=== PATIENT | male | born 1960 | race American Indian/Alaskan Native ===

== ENCOUNTER 2017-12-22 15:56 | Emergency (ER) | payer MEDICARE ==
[2017-12-22 15:56] VITALS: BMI 24.8
[2017-12-22 16:26] VITALS: BP 132/69; RESP 16; TEMP 98.9; O2SAT 100
[2017-12-22] MEDS ORDERED: Sodium Chloride 0.9% 1,000 ML IV STA (17:29)
--- NOTE | 2017-12-22 17:34 | ED PDOC ---
HPI: General Adult Time Seen by Provider: 12/22/17 17:17 Chief Complaint (Nursing): Flu-like Symptoms Chief Complaint (Provider): Fever History Per: Patient Additional Complaint(s): 57 yo male, PMH of HIV, COPD, presents to ED for evaluation of bodyaches, chills , tactile fever, sore throat x 3 days. Patient also reports diarrhea and generalized weakness. Pt reports being compliant on his medications; however, he does not recall his last CD4 or Viral load. Past Medical History Reviewed: Nursing Documentation, Vital Signs Vital Signs: Last Vital Signs Temp 98.9 F 12/22/17 16:23 Pulse 111 H 12/22/17 16:23 Resp 16 12/22/17 16:23 BP 132/69 12/22/17 16:23 Pulse Ox 100 12/22/17 17:34 - Medical History PMH: COPD, HIV, Pneumonia (pneumocystis jirovecii 1991) Denies: Chronic Kidney Disease - Surgical History Surgical History: Tonsillectomy - Family History Family History: States: Unknown Family Hx - Home Medications Home Medications: Ambulatory Orders Medication Instructions Recorded Elviteg/Olga/Emtric/Tenofo Dis 1 each PO DAILY 12/22/17 [Stribild Tablet] Gabapentin [Neurontin] 1 tab PO DAILY 12/22/17 Rilpivirine HCl [Edurant] 1 tab PO DAILY 12/22/17 valACYclovir [Valtrex] 1 gm PO DAILY 12/22/17 - Allergies Allergies/Adverse Reactions: Allergies Allergy/AdvReac Type Severity Reaction Status Date / Time dapsone Allergy Intermediate RASH Verified 12/22/17 16:23 Sulfa (Sulfonamide Allergy Intermediate RASH Verified 12/22/17 16:23 Antibiotics) sulfamethoxazole Allergy Intermediate RASH Verified 12/22/17 16:23 [From Bactrim] trimethoprim [From Bactrim] Allergy Intermediate RASH Verified 12/22/17 16:23 Review of Systems ROS Statement: Except As Marked, All Systems Reviewed And Found Negative Constitutional: Positive for: Fever ENT: Positive for: Nose Congestion Respiratory: Positive for: Cough Physical Exam - Reviewed Nursing Documentation Reviewed: Yes Vital Signs Reviewed: Yes - Physical Exam Appears: Positive for: Well, Non-toxic, No Acute Distress Head Exam: Positive for: ATRAUMATIC, NORMAL INSPECTION, NORMOCEPHALIC Skin: Positive for: Normal Color, Warm, DRY Eye Exam: Positive for: EOMI, Normal appearance, PERRL ENT: Positive for: Normal ENT Inspection Neck: Positive for: Normal, Painless ROM Cardiovascular/Chest: Positive for: Regular Rate, Rhythm Respiratory: Positive for: CNT, Normal Breath Sounds Gastrointestinal/Abdominal: Positive for: Normal Exam, Bowel Sounds, Soft Back: Positive for: Normal Inspection Extremity: Positive for: Normal ROM Neurologic/Psych: Positive for: Alert, Oriented - Laboratory Results Result Diagrams: 12/22/17 18:13 12/22/17 18:13 - ECG O2 Sat by Pulse Oximetry: 100 Medical Decision Making Medical Decision Making: IV access established and treatment initiated with IVF. Pt aferbile, antipyretics withheld. WBC 7.6 CXR: NAd, as read by CARTER CONTRERAS and Lactate WNL Labs resulted and reviewed with pt who demonstrated full understanding. Pt admits to slight burning on urination when asked. Pt declined STD testing, reports his passed last month and denies any recent sexual intercourse. IV Rocpehin administered. Case endorsed to Carter Bates while antibiotics running. Stable for discharge after antibiotics complete Disposition - Clinical Impression Clinical Impression: Influenza-like symptoms, UTI (urinary tract infection) - Patient ED Disposition Is Patient to be Admitted: No - Disposition Disposition: Routine/Home Disposition Time: 19:53 Condition: STABLE Forms: [facility] (Cuban) - POA Present On Arrival: None
--- NOTE | 2017-12-22 17:50 | RAD ---
HISTORY: fever and cough COMPARISON: Comparison made with prior study dated 04/18/2016 TECHNIQUE: Chest PA and lateral FINDINGS: LUNGS: Lung bond are slightly overinflated. The interstitial markings are slightly increased and coarsened with a few scattered peribronchial cuffing changes. Rule out sequela of reactive/inflammatory airway disease or viral illness. Rule out emphysema. No focal consolidation. . PLEURA: No significant pleural effusion identified. No pneumothorax apparent. CARDIOVASCULAR: Normal. OSSEOUS STRUCTURES: Probable old healed fracture deformity left posterolateral 10th rib VISUALIZED UPPER ABDOMEN: Normal. OTHER FINDINGS: None. IMPRESSION: The interstitial markings are slightly increased and coarsened with a few scattered peribronchial cuffing changes. Rule out sequela of reactive/inflammatory airway disease or viral illness. No focal consolidation.
[2017-12-22 18:25] LABS: BASO % 0.5 % (0.0-2.0); EOS # 0.1 K/uL (0.0-0.7); EOS % 0.9 % (0.0-4.0); LYMPH # 1.1 K/uL (1.0-4.3); LYMPH % 14.1 % (20.0-40.0); MEAN CELL VOLUME 99.7 fl (80.0-94.0); MEAN CORPUSCULAR HGB CONC 33.1 g/dL (33.0-37.0); MEAN PLATELET VOLUME 9.3 fl (7.2-11.7); MONO # 1.2 K/uL (0.0-0.8); NEUT # 5.2 K/uL (1.8-7.0); NEUT % 68.5 % (50.0-75.0); NRBC % 0.2 % (0.0-0.0); RBC 3.92 Mil/uL (4.40-5.90); RED CELL DISTRIBUTION WIDTH 14.2 % (11.5-14.5)
[2017-12-22 18:30] LABS: WHITE BLOOD COUNT 7.6 K/uL (4.8-10.8)
[2017-12-22 18:31] LABS: VENOUS BLOOD GAS BASE EXCESS 4.1 mmol/L (0.0-2.0); VENOUS BLOOD GAS PCO2 41 mmHg (40-60); VENOUS BLOOD GAS PO2 49 mm/Hg (30-55); VENOUS BLOOD PH 7.45 (7.32-7.43)
[2017-12-22 18:31] LABS: ALB/GLOB RATIO 1.2 (1.0-2.1); ALBUMIN 3.9 g/dL (3.5-5.0); ALT/SGPT 49 U/L (21-72); AST/SGOT 46 U/L (17-59); BLOOD UREA NITROGEN 9 mg/dl (9-20); CALCIUM 8.8 mg/dL (8.4-10.2); GFR AFRICAN-AMERICAN > 60; GFR NON-AFRICAN AMERICAN > 60
[2017-12-22 18:34] LABS: SQUAMOUS EPITHIAL 8 /hpf (0-5); URINE BILIRUBIN NEGATIVE (NEGATIVE); URINE BLOOD SMALL (NEGATIVE); URINE CLARITY CLOUDY (Clear); URINE COLOR YELLOW (YELLOW); URINE GLUCOSE (UA) NEG (Normal); URINE LEUKOCYTE ESTERASE LARGE Leu/uL (Negative); URINE NITRATE NEGATIVE (NEGATIVE); URINE PROTEIN 100 mg/dL (NEGATIVE)
[2017-12-22 18:36] LABS: URINE BACTERIA OCC (<OCC)
[2017-12-22] MEDS ORDERED: cefTRIAXone (Rocephin) 1 gm Inj ONE (20:02)
[2017-12-22 20:30] VITALS: PULSE 88
--- NOTE | 2017-12-23 10:47 | CARD ---
APPROVED REPORT EKG Measurement Heart [id number] <Conclusion> Sinus tachycardia Otherwise normal ECG
== END 2017-12-22 20:44 | disposition home or self-care (01) ==
LOC: H.ER 15:56
DX: N39.0 Urinary tract infection, site not specified (principal)
CPT/HCPCS: 71046; 80053; 81003; 82803; 84484; 85025; 87040; 87086; 93005; 96374; 99285; J0696; J1885; J2405; J7040

== ENCOUNTER 2018-07-08 21:19 | Emergency (ER) | payer MEDICARE ==
[2018-07-08 21:20] VITALS: BMI 24.8
[2018-07-08 21:28] VITALS: TEMP 98.1
[2018-07-08] MEDS ORDERED: Albuterol-Ipratrop 3 mg / 0.5 (3 ml) UD INH STA (21:36)
--- NOTE | 2018-07-08 21:50 | ED PDOC ---
HPI: SOB/CHF/COPD Time Seen by Provider: 07/08/18 21:29 Chief Complaint (Nursing): Shortness Of Breath Chief Complaint (Provider): asthma exacerabation History Per: Patient History/Exam Limitations: no limitations Onset/Duration Of Symptoms: Days (x4) Current Symptoms Are (Timing): Still Present Additional Complaint(s): 57 year old male with a history of asthma, HIV with an undetectable load presents to the ED for asthma exacerbation onset 4 days associated productive cough with clear sputum, shortness of breath, and chest tightness. Patient reports he used up all of his albuterol over the past 2 days. He denies hemoptysis, chest pain, fever, leg swelling or any other medical complaints. Patient has had similar previous episodes of severe asthma attacks that he has been to the ED for. He admits he continues to smoke cigarettes and marijuana. PMD: Amanda Against Medical Advice - AMA Patient Left Against Medical Advice: The patient declines admission to the hospital and wishes to leave the Emergency Department. This action is against my medical advice. This decision was made with informed refusal. The patient was told that admission to the hospital is necessary. Explanation of the reasons why were discussed. The risks of leaving were explained to the patient and include, but are not limited to, worsening of known or currently unknown conditions, permanent disability and from undiagnosed or untreated conditions. The patient has the capacity to make this informed decision and understands my explanation of the current medical problem and risks of leaving. The patient voluntarily accepts these risks and signed an AMA form documenting our conversation. The patient was given the opportunity to ask questions and reconsider. The patient was encouraged to return to the Emergency Department at any time for further care. Past Medical History Reviewed: Historical Data, Nursing Documentation, Vital Signs Vital Signs: Last Vital Signs Temp 98.1 F 07/08/18 21:26 Pulse 88 07/09/18 00:04 Resp 18 07/09/18 00:04 BP 137/82 07/09/18 00:04 Pulse Ox 98 07/09/18 00:04 - Medical History PMH: Asthma, COPD, HIV, Pneumonia (pneumocystis jirovecii 1991) Denies: Chronic Kidney Disease - Surgical History Surgical History: Tonsillectomy - Family History Family History: States: Other Other Family History: Asthma - Social History Current smoker - smoking cessation education provided: Yes Ex-Smoker (has not smoked in the last 12 months): No Alcohol: Social Drugs: Cannabis - Home Medications Home Medications: Ambulatory Orders Medication Instructions Recorded Doxycycline Hyclate 100 mg PO BID 7 Days cap 12/22/17 Elviteg/Olga/Emtric/Tenofo Dis 1 each PO DAILY 12/22/17 [Stribild Tablet] Gabapentin [Neurontin] 1 tab PO DAILY 12/22/17 Oseltamivir [Tamiflu] 75 mg PO BID 5 Days cap 12/22/17 Rilpivirine HCl [Edurant] 1 tab PO DAILY 12/22/17 valACYclovir [Valtrex] 1 gm PO DAILY 12/22/17 - Allergies Allergies/Adverse Reactions: Allergies Allergy/AdvReac Type Severity Reaction Status Date / Time dapsone Allergy Intermediate RASH Verified 12/22/17 16:23 Sulfa (Sulfonamide Allergy Intermediate RASH Verified 12/22/17 16:23 Antibiotics) sulfamethoxazole Allergy Intermediate RASH Verified 12/22/17 16:23 [From Bactrim] trimethoprim [From Bactrim] Allergy Intermediate RASH Verified 12/22/17 16:23 Review of Systems ROS Statement: Except As Marked, All Systems Reviewed And Found Negative Constitutional: Negative for: Fever Respiratory: Positive for: Cough (productive with clear sputum). Negative for: Hemoptysis Musculoskeletal: Positive for: Other (no leg swelling) Physical Exam - Reviewed Nursing Documentation Reviewed: Yes Vital Signs Reviewed: Yes - Physical Exam Appears: Positive for: Non-toxic, In Acute Distress Head Exam: Positive for: ATRAUMATIC, NORMOCEPHALIC Skin: Positive for: Warm, Dry Eye Exam: Positive for: EOMI, PERRL ENT: Negative for: Pharyngeal Erythema, Tonsillar Exudate Neck: Positive for: Painless ROM, Supple Cardiovascular/Chest: Positive for: Tachycardia, Other (regular rhythm ) Respiratory: Positive for: Rhonchi (diffuse), Wheezing (diffuse), Respiratory Distress (moderate). Negative for: Accessory Muscle Use, Rales Gastrointestinal/Abdominal: Positive for: Soft. Negative for: Tenderness Back: Positive for: Normal Inspection. Negative for: Decreased ROM Extremity: Negative for: Pedal Edema Lymphatic: Negative for: Adenopathy Neurologic/Psych: Positive for: Alert. Negative for: Oriented - Laboratory Results Result Diagrams: 07/08/18 22:00 07/08/18 22:00 - ECG O2 Sat by Pulse Oximetry: 92 (RA) Pulse Ox Interpretation: Normal Medical Decision Making Medical Decision Making: Time: 2135 Initial Impression: Asthma exacerbation Differential diagnoses include but are not limited to: pneumonia, CHF, sepsis Initial Plan: --EKG --CMP --Lact acid --LDH --CBC with differentials --CXR --Duoneb 9 ml IH --Solu-medrol 125 mg IVP --Blood culture --Peak flow pre/post treatment Pt has persistent wheeze and some hypoxia after ER management. Needs hospitalization for continued treatment of asthma. He wants to leave to move his car to garage. Advised that pt will have to sign out AMA for this. He insists he will come back. Risks of leaving discussed and patient signed AMA Scribe Attestation: Documented by Krista Reynoso, acting as a scribe for Valery Grace MD Provider Scribe Attestation: All medical record entries made by the Scribe were at my direction and personally dictated by me. I have reviewed the chart and agree that the record accurately reflects my personal performance of the history, physical exam, medical decision making, and the department course for this patient. I have also personally directed, reviewed, and agree with the discharge instructions and disposition. Disposition - Clinical Impression Clinical Impression: Asthma exacerbation - Disposition Disposition: Against Medical Advice Disposition Time: 23:00 Condition: UNKNOWN Additional Instructions: RETURN TO ER IMMEDIATELY FOR ADMISSION Instructions: Leaving Against Medical Advice Forms: [employer] (Kazakh)
[2018-07-08 22:15] LABS: BASO % 0.3 % (0.0-2.0); EOS # 0.6 K/uL (0.0-0.7); EOS % 10.8 % (0.0-4.0); HEMOGLOBIN 14.7 g/dL (12.0-18.0); LYMPH % 50.9 % (20.0-40.0); MEAN CELL VOLUME 104.2 fl (80.0-94.0); MEAN CORPUSCULAR HEMOGLOBIN 34.7 pg (27.0-31.0); MEAN CORPUSCULAR HGB CONC 33.3 g/dL (33.0-37.0); MEAN PLATELET VOLUME 8.8 fl (7.2-11.7); MONO # 0.5 K/uL (0.0-0.8); MONO % 7.9 % (0.0-10.0); NEUT # 1.8 K/uL (1.8-7.0); NEUT % 30.1 % (50.0-75.0); NRBC % 0.1 % (0.0-0.0); RBC 4.25 Mil/uL (4.40-5.90); RED CELL DISTRIBUTION WIDTH 13.7 % (11.5-14.5); WHITE BLOOD COUNT 5.9 K/uL (4.8-10.8)
[2018-07-08 22:25] LABS: ALB/GLOB RATIO 1.3 (1.0-2.1); ALBUMIN 4.3 g/dL (3.5-5.0); ALT/SGPT 33 U/L (21-72); AST/SGOT 41 U/L (17-59); BLOOD UREA NITROGEN 9 mg/dl (9-20); CALCIUM 9.5 mg/dL (8.4-10.2); GFR NON-AFRICAN AMERICAN > 60
[2018-07-09 00:05] VITALS: BP 137/82; PULSE 88; RESP 18
[2018-07-09 01:59] VITALS: O2SAT 92
[2018-07-09] MEDS ORDERED: Albuterol-Ipratrop 3 mg / 0.5 (3 ml) UD ONE ×2 (08:19→12:05)
--- NOTE | 2018-07-09 08:30 | RAD ---
Date of service: 07/08/2018 HISTORY: Shortness of breath COMPARISON: 12/22/2017. FINDINGS: LUNGS: The lungs are hyperinflated and there is peribronchial thickening with chronic changes in both lungs. PLEURA: No significant pleural effusion identified, no pneumothorax apparent. CARDIOVASCULAR: Normal. OSSEOUS STRUCTURES: No significant abnormalities. VISUALIZED UPPER ABDOMEN: Normal. OTHER FINDINGS: None. IMPRESSION: No acute findings.
--- NOTE | 2018-07-09 09:31 | CARD ---
APPROVED REPORT Date of service: 07/08/2018 <Conclusion> Sinus tachycardia Otherwise normal ECG
== END 2018-07-09 00:12 | disposition left against medical advice (07) ==
LOC: H.ER 21:19
DX: J45.901 Unspecified asthma with (acute) exacerbation (principal); F17.210 Nicotine dependence, cigarettes, uncomplicated; J44.9 Chronic obstructive pulmonary disease, unspecified; R09.02 Hypoxemia; F12.10 Cannabis abuse, uncomplicated
CPT/HCPCS: 71045; 80053; 83605; 83615; 85025; 87040; 93005; 94150; 94640; 96374; 99285; J2930

== ENCOUNTER 2018-07-09 00:46 | Observation (INO) | payer MEDICARE ==
[2018-07-09 00:47] VITALS: BMI 24.8
[2018-07-09] MEDS ORDERED: Magnesium Sulfate 2 gm/50 ml 2 GM/50 ML BAG IVPB ONE (01:02)
[2018-07-09] MEDS ORDERED: Albuterol 0.083% Inhal Sol (2.5 mg/3 mL) UD IH STA (01:02)
--- NOTE | 2018-07-09 01:12 | ED PDOC ---
HPI: SOB/CHF/COPD Time Seen by Provider: 07/09/18 00:58 Chief Complaint (Nursing): Shortness Of Breath Chief Complaint (Provider): Shortness Of Breath History Per: Patient History/Exam Limitations: no limitations Onset/Duration Of Symptoms: Days (x4) Current Symptoms Are (Timing): Still Present Additional Complaint(s): 57 y/o with a PMHx asthma and HIV presented earlier today for four days of chest tightness. Patient was going to be admitted for severe exacerbation but signed out AMA in order to move his car. Patient is presenting to be admitted to the hospital for shortness of breath. Symptoms remain unchanged, if not worse than when he left AMA. PMD: Amanda Past Medical History Reviewed: Historical Data, Nursing Documentation, Vital Signs Vital Signs: Last Vital Signs Temp 98.8 F 07/09/18 00:59 Pulse 70 07/09/18 02:57 Resp 17 07/09/18 02:57 BP 137/80 07/09/18 02:57 Pulse Ox 97 07/09/18 02:57 - Medical History PMH: Asthma, COPD, HIV, Pneumonia (pneumocystis jirovecii 1991) Denies: Chronic Kidney Disease - Surgical History Surgical History: Tonsillectomy - Family History Family History: States: Unknown Family Hx - Home Medications Home Medications: Ambulatory Orders Medication Instructions Recorded Elviteg/Olga/Emtric/Tenofo Dis 1 each PO DAILY 12/22/17 [Stribild Tablet] Rilpivirine HCl [Edurant] 1 tab PO DAILY 12/22/17 - Allergies Allergies/Adverse Reactions: Allergies Allergy/AdvReac Type Severity Reaction Status Date / Time dapsone Allergy Intermediate RASH Verified 12/22/17 16:23 Sulfa (Sulfonamide Allergy Intermediate RASH Verified 12/22/17 16:23 Antibiotics) sulfamethoxazole Allergy Intermediate RASH Verified 12/22/17 16:23 [From Bactrim] trimethoprim [From Bactrim] Allergy Intermediate RASH Verified 12/22/17 16:23 Review of Systems ROS Statement: Except As Marked, All Systems Reviewed And Found Negative Constitutional: Negative for: Fever Respiratory: Positive for: Cough. Negative for: Hemoptysis Musculoskeletal: Negative for: Other (leg swelling) Physical Exam - Physical Exam Appears: Positive for: Non-toxic, In Acute Distress Head Exam: Positive for: ATRAUMATIC, NORMOCEPHALIC Skin: Positive for: Warm, Dry Eye Exam: Positive for: EOMI, PERRL ENT: Negative for: Pharyngeal Erythema, Tonsillar Exudate Neck: Positive for: Painless ROM, Supple Cardiovascular/Chest: Positive for: Regular Rate, Rhythm. Negative for: Murmur Respiratory: Positive for: Rhonchi (diffuse), Wheezing (diffuse), Respiratory Distress (moderate). Negative for: Accessory Muscle Use, Rales Gastrointestinal/Abdominal: Positive for: Soft. Negative for: Tenderness Back: Positive for: Normal Inspection. Negative for: Decreased ROM Extremity: Negative for: Pedal Edema Lymphatic: Negative for: Adenopathy Neurologic/Psych: Positive for: Alert. Negative for: Motor/Sensory Deficits - ECG O2 Sat by Pulse Oximetry: 95 (RA) Pulse Ox Interpretation: Normal Medical Decision Making Medical Decision Making: Time: 101 Impression: Severe asthma exacerbation and HIV Plan: -- Albuterol 0.083% 2.5 ml IH -- Magnesium Sulfate 2 gm/50 ml IVPB -- Peak Flow Pre/Post Tx -- Discussed with Dr. Stewart, family practice resident for hospitalization. Scribe Attestation: Documented by Barry Levi acting as a scribe for Valery Grace MD. Provider Scribe Attestation: All medical record entries made by the Scribe were at my direction and personally dictated by me. I have reviewed the chart and agree that the record accurately reflects my personal performance of the history, physical exam, medical decision making, and the department course for this patient. I have also personally directed, reviewed, and agree with the discharge instructions and disposition. Disposition - Clinical Impression Clinical Impression: Asthma exacerbation - Disposition Disposition Time: 03:00 Condition: FAIR - Pt Status Changed To: Hospital Disposition Of: Observation - POA Present On Arrival: None
[2018-07-09] MEDS ORDERED: Albuterol 0.083% Inhal Sol (2.5 mg/3 mL) UD ONE (01:20)
--- NOTE | 2018-07-09 02:44 | CP.PCM.HP ---
History of Present Illness - History of Present Illness History of Present Illness: 57 yo, m, PMhx/o HIV, chronic Hep B, COPD, Asthma presents to ED c/o SOB started 4 days ago associated with productive cough with clear sputum, chest tightness and wheezing. He denies fever but reports night sweats for the last 4 days. Denies hemoptysis, chest pain, n,v,d,abd pain, dysuria. Reports he finished his rescue inhaler albuterol used for the last 4 days. Patient reports he came from [facility] about 2 months ago and has been living around with family and sometimes sleeping in his van and he thinks his asthma has been exacerbated due to air conditioning of his car. 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 Patient also reports a genital ulcer, had recent Dermatology consult. Patient was prescribed a cream and Augmentin but only took 2 tab 7 days ago. Patient was told he had a staph bacterial infection. Patient seen early in Ed but signed AMA to move his car and returned back to be admitted. On evaluation in Ed patient in not acute respiratory distress, able to speak full sentences, O2 sat by NC 2 L 97%. PMD: Rainey. Last visit 05/20/18 PMhx: HIV, COPD, Asthma Allergies: Bactrim ( rash) Meds: Pt does not recall his meds. He left the list in his car. ECW reviewed Stribild 1 tab daily Edurant 25 mg daily Valtrex 1g daily. PSurgHX: Hemorrhoids, tonsillectomy, genital warts PShx: +ETOH social, Smoker x 20 years 6 cig/day. Denied rect drugs on my evaluation. Reports not to be sexually active after his 10/2017 code status: full code Ed course: VS: nl except O2 sat 95 HR: 95 Labs: CBC NL except MCV: 104 CMP: k:.4 Imaging: CXR: no infiltrate as interpreted by me Meds: Albuterol 2,5, duoneb, Mag Sulf 2 gm. Present on Admission - Present on Admission Any Indicators Present on Admission: No History of DVT/PE: No History of Uncontrolled Diabetes: No Urinary Catheter: No Review of Systems - Review of Systems All systems: reviewed and no additional remarkable complaints except - Respiratory Respiratory: Cough, Dyspnea, Chest Congestion - Integumentary Integumentary: Skin Ulcer (penis glans) Past Patient History - Past Medical History & Family History Past Medical History?: Yes - Past Social History Smoking Status: Light Smoker < 10 Cigarettes Daily - CARDIAC Hx Cardiac Disorders: No - PULMONARY Hx Respiratory Disorders: Yes Hx Asthma: Yes Hx Chronic Obstructive Pulmonary Disease (COPD): Yes Hx Pneumonia: Yes (pneumocystis jirovecii 1991) - NEUROLOGICAL Hx Neurological Disorder: Yes (hx tremors no longer) - HEENT Hx HEENT Problems: No - RENAL Hx Chronic Kidney Disease: No - ENDOCRINE/METABOLIC Hx Endocrine Disorders: No - HEMATOLOGICAL/ONCOLOGICAL Hx Blood Disorders: Yes Hx Human Immunodeficiency Virus (HIV): Yes - INTEGUMENTARY Hx Dermatological Problems: Yes Other/Comment: anogenital warts herpes simplex tinea unguim perianal area - MUSCULOSKELETAL/RHEUMATOLOGICAL Hx Musculoskeletal Disorders: Yes (left shoulder pain) - GASTROINTESTINAL Hx Gastrointestinal Disorders: Yes (hx bloating) - GENITOURINARY/GYNECOLOGICAL Hx Genitourinary Disorders: Yes Hx Prostate Problems: Yes - PSYCHIATRIC Hx Substance Use: No (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 ) - SURGICAL HISTORY Hx Tonsillectomy: Yes - ANESTHESIA Hx Anesthesia: Yes Hx Anesthesia Reactions: No Hx Malignant Hyperthermia: No Meds Allergies/Adverse Reactions: Allergies Allergy/AdvReac Type Severity Reaction Status Date / Time dapsone Allergy Intermediate RASH Verified 12/22/17 16:23 Sulfa (Sulfonamide Allergy Intermediate RASH Verified 12/22/17 16:23 Antibiotics) sulfamethoxazole Allergy Intermediate RASH Verified 12/22/17 16:23 [From Bactrim] trimethoprim [From Bactrim] Allergy Intermediate RASH Verified 12/22/17 16:23 Physical Exam - Constitutional Appears: No Acute Distress - Head Exam Head Exam: ATRAUMATIC, NORMOCEPHALIC - Eye Exam Eye Exam: Normal appearance - ENT Exam ENT Exam: Mucous Membranes Moist - Neck Exam Neck exam: Positive for: Normal Inspection - Respiratory Exam Respiratory Exam: Prolonged Expiratory Phase (expiratory wheezing), Wheezes. absent: Rales, Rhonchi - Cardiovascular Exam Cardiovascular Exam: REGULAR RHYTHM, +S1, +S2 - GI/Abdominal Exam GI & Abdominal Exam: Normal Bowel Sounds, Soft. absent: Tenderness - Exam External exam: Lesions (ulcer lesion around penis glans, clean, painless 3x1 cm inferior shaft area and chronic decoloration of penis glans) - Back Exam Back exam: NORMAL INSPECTION - Neurological Exam Neurological exam: Alert, Oriented x3 - Psychiatric Exam Psychiatric exam: Normal Affect, Normal Mood - Skin Skin Exam: Normal Color Results - Vital Signs Recent Vital Signs: Last Vital Signs Temp 98.8 F 07/09/18 00:59 Pulse 88 07/09/18 02:25 Resp 16 07/09/18 02:25 BP 134/83 07/09/18 00:59 Pulse Ox 98 07/09/18 02:25 Assessment & Plan - Assessment and Plan (Free Text) Plan: 57 yo male, PMH of HIV, COPD, Asthma presents admitted for Asthma exacerbation. Chart reviewed in [facility]. Patient has Hx/o COPD and also reports hx/o Asthma in childhood. 1) COPD/Asthma exacerbation --CXR: no infiltrates -s/p Solumedrol 125 mg ED and Mg sulfate -c/w Solumedrol 60 mg IV Q 12h -Duoneb Q4h yasmin -will treat empiric with Z-pack. (Purulent sputum, smoker, HIV) -O2 NC 3l -f/u sputum cx 2) HIV -CD4 482, VL undetectable -c/w Stribild 1 tab daily -c/w Edurant 25 mg 1 tab daily 3) Chronic Hep B -Liver US recent 06/04/18 no significant change. Liver hemangioma 1.9 cm -HBV VL elevated 4) Genital ulcer -may be recurrent genital herpes vs syphilis -f/u RPR, FTAabs -recently seen by [facility].Patient said he had Bact staph infection -did not take Augmentin. -c/w Valtrex 1 g daily 5) DVT Prophylaxis -Lovenox 40 mg sc daily
[2018-07-09] MEDS: Magnesium Sulfate 1 GM in Dextrose 5% In Water 100 ML IV SCH ×2 (02:46→03:44)
[2018-07-09] MEDS ORDERED: Potassium Chloride 20 mEq ER Tab PO ONE ×2 (02:58→03:42)
[2018-07-09] MEDS ORDERED: Sodium Chloride 3% for Inhalation 4 ML VIAL.NEB IH PRN (03:23)
[2018-07-09] MEDS ORDERED: Albuterol-Ipratrop 3 mg / 0.5 (3 ml) UD ONE ×2 (03:59→15:53)
[2018-07-09] MEDS: Albuterol-Ipratrop 3 mg / 0.5 (3 ml) UD INH SCH ×4 (04:05→15:54)
[2018-07-09] MEDS: Enoxaparin 40 mg Syringe SC SCH (08:45)
[2018-07-09 08:49] LABS: BLOOD UREA NITROGEN 10 mg/dl (9-20); CALCIUM 9.4 mg/dL (8.4-10.2); GFR NON-AFRICAN AMERICAN > 60
[2018-07-09] MEDS ORDERED: methylPREDNISolone 60 MG in Sodium Chloride 0.9% 50 ML IV SCH (09:00)
[2018-07-09] MEDS: Patient's Own Med (Valacyclovir [Valtrex] 1 GM) PO SCH (14:05)
[2018-07-09] MEDS: [UNRECOGNIZED DRUG - OTHER] PO SCH (14:05)
[2018-07-09] MEDS: [UNRECOGNIZED DRUG - OTHER] PO SCH (14:05)
[2018-07-10] MEDS: Albuterol-Ipratrop 3 mg / 0.5 (3 ml) UD INH SCH ×5 (00:27→15:32)
--- NOTE | 2018-07-10 08:46 | CP.PCM.PN ---
Subjective - Date & Time of Evaluation Date of Evaluation: 07/10/18 Time of Evaluation: 08:00 Objective - Vital Signs/Intake and Output Vital Signs (last 24 hours): Temp Pulse Resp BP Pulse Ox 97.3 F L 87 20 142/83 97 07/10/18 08:18 07/10/18 08:18 07/10/18 08:18 07/10/18 08:18 07/10/18 08:18 - Medications Medications: Current Medications Acetaminophen (Tylenol 325mg Tab) 650 mg PO Q6 PRN PRN Reason: Pain, Mild (1-3) Acetaminophen (Tylenol 325mg Tab) 650 mg PO Q6 PRN PRN Reason: Fever >100.4 F Albuterol/Ipratropium (Duoneb 3 Mg/0.5 Mg (3 Ml) Ud) 3 ml INH RQ4 [facility] Last Admin: 07/10/18 08:00 Dose: 3 ml Azithromycin (Zithromax) 250 mg PO DAILY OTTO PRN Reason: Protocol Stop: 07/12/18 09:01 Last Admin: 07/09/18 09:39 Dose: 250 mg Enoxaparin Sodium (Lovenox) 40 mg SC DAILY OTTO PRN Reason: Protocol Last Admin: 07/09/18 08:45 Dose: 40 mg Home Med (Elviteg/Olga/Emtric/Tenofo Dis [Stribild Tablet]) 1 each PO DAILY [facility] Last Admin: 07/09/18 14:05 Dose: 1 each Home Med (Rilpivirine Hcl [Edurant]) 1 tab PO DAILY [facility] Last Admin: 07/09/18 14:05 Dose: 1 tab Home Med (Valacyclovir [Valtrex]) 1 gm PO DAILY [facility] Last Admin: 07/09/18 14:05 Dose: 1 gm Methylprednisolone (Solu-Medrol) 60 mg IV BID [facility] Last Admin: 07/09/18 17:05 Dose: 60 mg Nicotine (Nicoderm Cq) 1 patch TD DAILY [facility] Last Admin: 07/09/18 08:51 Dose: Not Given - Labs Labs: 07/09/18 08:08
[2018-07-10] MEDS: Patient's Own Med (Valacyclovir [Valtrex] 1 GM) PO SCH (09:21)
[2018-07-10] MEDS: Enoxaparin 40 mg Syringe SC SCH (09:21)
[2018-07-10] MEDS: [UNRECOGNIZED DRUG - OTHER] PO SCH (09:21)
[2018-07-10] MEDS: [UNRECOGNIZED DRUG - OTHER] PO SCH (09:21)
--- NOTE | 2018-07-10 15:44 | CP.PCM.DIS ---
Provider - Provider Date of Admission: 07/09/18 01:17 Attending physician: Juanis Gupta MD Primary care physician: Jarvis Kingsley MD Time Spent in preparation of Discharge (in minutes): 15 Diagnosis - Discharge Diagnosis (1) Asthma exacerbation Status: Acute (2) COPD (chronic obstructive pulmonary disease) Status: Chronic (3) HIV (human immunodeficiency virus infection) Status: Chronic Hospital Course - Lab Results Lab Results: Most Recent Lab Values Sodium 137 mmol/l (132-148) 07/09/18 08:08 Potassium 5.1 MMOL/L (3.6-5.0) H 07/09/18 08:08 Chloride 106 mmol/L (98-107) 07/09/18 08:08 Carbon Dioxide 23 mmol/L (22-30) 07/09/18 08:08 Anion Gap 13 (10-20) 07/09/18 08:08 BUN 10 mg/dl (9-20) 07/09/18 08:08 Creatinine 1.0 mg/dl (0.8-1.5) 07/09/18 08:08 Est GFR ( Amer) > 60 07/09/18 08:08 Est GFR (Non-Af Amer) > 60 07/09/18 08:08 Random Glucose 153 mg/dL (75-110) H 07/09/18 08:08 Calcium 9.4 mg/dL (8.4-10.2) 07/09/18 08:08 RPR Nonreactive (NONREACTIVE) 07/09/18 08:08 T.pallidum Ab (FTA-ABS) Nonreactive (Nonreactive) 07/09/18 08:08 - Hospital Course Hospital Course: 57 yo, m, PMhx/o HIV, chronic Hep B, COPD, Asthma presents to ED with shortness of breath, cough, chest tightness and wheezing. Patient evaluated in ED. Vitals stable, Labs reviewed. CXR: No active disease, EKG: No acute ST changes. Patient's symptoms improved with Duoneb and solumedrol. Patient's oxygen saturation > 94% on room air. Patient to be discharged on Albuterol inhaler, Symbicort, Azithromycin and Prednisone. Patient advised to F/U with Dr. Kingsley within 1 week. Discharge Medications New Medications - Albuterol Sulfate [Proair Respiclick] 90 mcg IH Q4 PRN #1 aer.pow.ba - Azithromycin [Zithromax] 250 mg PO DAILY #3 tab - Budesonide/Formoterol Fumarate [Symbicort] 1 aer IH BID #1 aer - predniSONE [predniSONE Tab] 40 mg PO DAILY #5 tab Home Medications - Stribild 1 tab PO daily - Rilpivirine 1 tab PO daily Discharge Exam - Head Exam Head Exam: ATRAUMATIC, NORMOCEPHALIC - Eye Exam Eye Exam: Normal appearance, PERRL - ENT Exam ENT Exam: Mucous Membranes Moist - Neck Exam Neck exam: Full Rom - Respiratory Exam Respiratory Exam: Wheezes. absent: Decreased Breath Sounds, Prolonged Expiratory Phase, Rales, Rhonchi, Respiratory Distress Additional comments: Minimal Bilateral wheezing - Cardiovascular Exam Cardiovascular Exam: REGULAR RHYTHM, +S1, +S2. absent: Systolic Murmur - GI/Abdominal Exam GI & Abdominal Exam: Normal Bowel Sounds. absent: Distended, Firm, Guarding, Hernia - Back Exam Back exam: absent: CVA tenderness (L), CVA tenderness (R), tenderness - Neurological Exam Neurological exam: Alert, Oriented x3 - Psychiatric Exam Psychiatric exam: Normal Affect, Normal Mood - Skin Skin Exam: Dry, Intact, Normal Color Discharge Plan - Discharge Medications Prescriptions: Albuterol Sulfate [Proair Respiclick] 90 mcg IH Q4 PRN #1 aer.pow.ba PRN Reason: Shortness Of Breath Albuterol/Ipratropium [Duoneb 3 mg/0.5 mg (3 ml) UD] 3 ml INH RQ4 5 Days neb Azithromycin [Zithromax] 250 mg PO DAILY #3 tab Budesonide/Formoterol Fumarate [Symbicort] 1 aer IH BID #1 aer predniSONE [predniSONE Tab] 40 mg PO DAILY #5 tab - Follow Up Plan Condition: FAIR Disposition: HOME/ ROUTINE Instructions: Asthma, Adult (DC), COPD Including Emphysema (DC), Quitting Smoking Additional Instructions: Follow up with Dr. Kingsley within 1 week. Referrals: Jarvis Kingsley MD [Primary Care Provider] -
[2018-07-10 16:26] VITALS: BP 142/83; PULSE 87; RESP 20; TEMP 97.3; O2SAT 97
== END 2018-07-10 16:30 | disposition home or self-care (01) ==
LOC: H.ER 00:46 → H.ERHOLD 01:17 → H.MEDSURG1 19:03
PROVIDERS: ADMIT Family Medicine Geriatric Medicine; ATTEND Family Medicine Geriatric Medicine
DX: J45.901 Unspecified asthma with (acute) exacerbation (principal); J44.9 Chronic obstructive pulmonary disease, unspecified; B18.1 Chronic viral hepatitis B without delta-agent; B00.9 Herpesviral infection, unspecified; Z21 Asymptomatic human immunodeficiency virus [HIV] infection status; F17.210 Nicotine dependence, cigarettes, uncomplicated; Z88.2 Allergy status to sulfonamides; Z87.01 Personal history of pneumonia (recurrent)
CPT/HCPCS: 80048; 86592; 86780; 94640; 96360; 96372; 99285; G0378; J1650; J2930; J3475